=== PATIENT | male | born 1955 | race Caucasian/White ===

== ENCOUNTER 2019-06-22 15:03 | Emergency (ER) | payer OTHER, SELFPAY ==
--- NOTE | 2019-06-22 15:25 | ED.GENADULT ---
HPI - General Adult General Chief complaint: Ear Stated complaint: R/ear pain Time Seen by Provider: 06/22/19 15:25 Source: patient Mode of arrival: ambulatory Limitations: no limitations History of Present Illness HPI narrative: 63-year-old male patient presents to the [facility] with complaints of right ear pain. Patient states he has had this pain for about 8 days now. Patient denies any fevers, runny nose, stuffy nose, sore throat, cough. Related Data Allergies Allergy/AdvReac Type Severity Reaction Status Date / Time levofloxacin Allergy Unknown Skin Verified 04/09/19 15:04 Reaction Scallop Allergy Mild Uncoded 04/09/19 15:04 Review of Systems Review of Systems: Narrative: CONSTITUTIONAL: Denies fever, chills, or sweats. EYES: Denies visual changes, redness, or discharge. ENT: Denies rhinorrhea, congestion, sore throat, positive right otalgia. CARDIOVASCULAR: Denies chest pain, palpitations, or edema. RESPIRATORY: Denies cough or dyspnea. GASTROINTESTINAL: Denies abdominal pain, nausea, vomiting, or diarrhea. GENITOURINARY: Denies dysuria or hematuria. SKIN: Denies rash or itching. MUSCULOSKELETAL: Denies back pain, joint pain, or myalgia. NEUROLOGIC: Denies headache, numbness, or weakness. PSYCHIATRIC: Denies anxiety or depression. [facility] Past Medical History Medical History (Updated 06/22/19 @ 15:36 by MANJIT Koch) Chronic low back pain Pneumonia Comments At the time of my signature I agree with nursing past medical history, surgical, social, and family history. There is no relevant family history pertinent to the presenting complaint. Exam Narrative: Exam Narrative: GENERAL: Well-appearing, well-nourished, and in no acute distress. HEAD: Normocephalic, atraumatic. EYES: PERRLA and EOMI. ENT: Nares clear, no rhinorrhea or epistaxis. Mucous membranes moist. Posterior pharynx with no erythema, tonsillar margin, exudates or lesions present. The right TM with bright red erythema noted. The left TM is clear with no erythema or foreign bodies to the canal. NECK: Supple. No lymphadenopathy CHEST: Clear to auscultation. No respiratory distress. HEART: Regular rate and rhythm. No murmur heard. Normal peripheral pulses. ABDOMEN: Soft, nontender, nondistended, normal active bowel sounds. EXTREMITIES: Normal range of motion. No edema. SKIN: Warm, dry, no rash. NEURO: No focal deficits. Alert and oriented x3. Course Vital Signs Vital signs: Vital Signs Temperature 37.2 C 06/22/19 15:34 Pulse Rate 78 06/22/19 15:34 Respiratory Rate 20 06/22/19 15:34 Blood Pressure 137/57 L 06/22/19 15:34 Pulse Oximetry 97 06/22/19 15:34 Temperature 37.2 C 06/22/19 15:34 Pulse Rate 78 06/22/19 15:34 Respiratory Rate 06/22/19 15:34 Blood Pressure 137/57 L 06/22/19 15:34 Pulse Oximetry 97 06/22/19 15:34 Vital signs reviewed. Medical Decision Making Differential Diagnosis Differential Diagnosis: Differential diagnosis: Otitis media, otitis externa, perforated TM, infection of the outer ear, foreign body or cerumen impaction, ruptured TM, acute mastoiditis, ligament otitis externa, dehydration, pneumonia, sepsis, dental or intraoral infection, TMJ dysfunction Discussed with patient that it looks that he has an infected right ear. Discussed with him we were going to discharge him home with oral antibiotics for the ear infection. Discussed with him he needs to follow-up with his primary doctor especially if his symptoms are not improving. Patient verbalized understanding denies any other questions or concerns at this time. Vital Signs Vital Signs: Vital Signs Temperature 37.2 C 06/22/19 15:34 Pulse Rate 78 06/22/19 15:34 Respiratory Rate 06/22/19 15:34 Blood Pressure 137/57 L 06/22/19 15:34 Pulse Oximetry 97 06/22/19 15:34 Temperature 37.2 C 06/22/19 15:34 Pulse Rate 78 06/22/19 15:34 Respiratory Rate 20 06/22/19 15:34 Blood Pressure 137/57 L
[2019-06-22 15:34] VITALS: BP 137/57; PULSE 78; RESP 20; TEMP 37.2; O2SAT 97
--- NOTE | 2019-06-22 15:37 | PC.NURSE ---
pt does not have a med list and does not know names of meds
== END 2019-06-22 15:44 | disposition home or self-care (01) ==
PROVIDERS: Emergency Provider Nurse Practitioner Family
DX: H66.91 Otitis media, unspecified, right ear (principal)
CPT/HCPCS: 99203; G0463